=== PATIENT | female | born 1955 | race Caucasian/White ===

== ENCOUNTER 2017-07-21 08:54 | Day surgery (SDC) | payer MEDICARE, MEDICAID ==
[~2017-07-21 08:54] MED LIST: Sodium Chloride 0.9% 1,000 ML IV SCH; Sodium Chloride 0.9% 10 ML Syringe FLUSH PRN
[2017-07-21] MEDS ORDERED: Propofol 1,000 MG/100 ML SDV ONE (12:10)
[2017-07-21] MEDS ORDERED: Glycopyrrolate 0.2 MG/ML 2 ML SDV ONE (12:10)
[2017-07-21] MEDS ORDERED: Benzocaine/Butamben/Tetracaine Top Spray 56 GM Canister ONE (12:10)
[2017-07-21] MEDS ORDERED: Midazolam 1 MG/ML 5 ML SDV ONE (12:10)
--- NOTE | 2017-07-21 13:36 | OR ---
DATE OF OPERATION: 07/21/2017 PREOPERATIVE DIAGNOSIS: Pre-bariatric surgery. POSTOPERATIVE DIAGNOSIS: Moderate hiatal hernia. OPERATION: Esophagogastroduodenoscopy. COMPLICATIONS: None. DRAINS: None. SPECIMENS: None. ESTIMATED BLOOD LOSS: 0. ANESTHESIA: General propofol anesthesia. INDICATION: Ms. Khalil is a 62-year-old female, here for evaluation for gastroesophageal reflux disease prior to bariatric surgery. The above-mentioned procedure was explained. The risks, benefits, and complications were explained. The patient understood and agreed and was brought to the operating room. DESCRIPTION OF PROCEDURE: The patient was brought to the operating room, placed supine on the operating room table. Satisfactory general propofol anesthesia was administered. We began by placing a mouthguard within the oral cavity and subsequently placing the endoscope into the oral cavity and advancing this under direct vision down to the level of the second portion of the duodenum. The upper GI tract was then evaluated on withdrawal. Duodenum was normal. Pylorus is normal. No evidence of ulcerations. I then evaluated the stomach, which appeared normal. Retroflexion of the stomach revealed a Hill grade 3 hiatal hernia. Measurement of the hiatal hernia was roughly between 2 and 3 cm. The Z-line was evaluated and appeared normal. No evidence of esophagitis. The remainder of the esophagus was normal. The endoscope was subsequently withdrawn. The patient was awoken in the OR and taken to the PACU for recovery. There were no complications. Instrument count was correct. The patient tolerated procedure well. SHANNON/CADEN /[id number]
== END 2017-07-21 13:50 | disposition home or self-care (01) ==
LOC: LB.SDS 08:54
PROVIDERS: ATTEND Surgery
DX: K44.9 Diaphragmatic hernia without obstruction or gangrene (principal); Z98.84 Bariatric surgery status; Z88.8 Allergy status to other drugs, medicaments and biological substances
CPT/HCPCS: 82962; J2250; J3490; J7040; J7050